=== PATIENT | female | born 1995 | race Two or more races ===

== ENCOUNTER 2024-03-07 09:13 | Outpatient (RCR) | payer MEDICAID, SELFPAY ==
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
--- NOTE | 2024-04-03 09:28 | PT.ODS1RPT ---
PT OP Progress/Discharge Note Date of Service: 03/24/24 Progress Note/DC Note Progress Note/Discharge Note: DC Note Patient Information Visit Reasons: right ankle pain Service Discharge Date: 04/03/24 Status Assessment: Pt seen for inital evaluation 03/07/24. Pt no showed 03/14 and 03/26 appt. At this time Pt will be d/c from care due to auth 03/20/24. Pt did not meet set goals in therapy; thank you for your referrals.
== END 2024-04-04 23:59 | disposition home or self-care (01) ==
LOC: CPTX 09:13
PROVIDERS: PCP Family Medicine; Referring Provider Family Medicine; Visit Provider Family Medicine
DX: M25.571 Pain in right ankle and joints of right foot (principal); G89.29 Other chronic pain; R26.2 Difficulty in walking, not elsewhere classified; R26.89 Other abnormalities of gait and mobility
CPT/HCPCS: 97162

== ENCOUNTER 2024-10-02 11:00 | Outpatient (RCR) | payer MEDICAID, SELFPAY ==
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
--- NOTE | 2024-09-20 11:09 | PT.ODAYNRPT ---
PT Outpatient Daily Note OP Daily Note Outpatient Physical Therapy Treatment Date: 09/20/24 Visit Reasons: RIGHT ANKLE PAIN Subjective: Pt c/o 9/10 pain this morning, said she walked further that what she is used to today. Objective: Please see flow sheet for ther ex list. Assessment: Pt demonstrates poor activity tolerance due to pain response. Plan: Continue with pOC, assess response to treatment. Length of Time (minutes) of Treatment: 30 Minutes Procedure Charges Therapeutic Exercise 30 minutes: Yes
--- NOTE | 2024-09-25 11:07 | PT.ODAYNRPT ---
PT Outpatient Daily Note OP Daily Note Outpatient Physical Therapy Treatment Date: 09/25/24 Visit Reasons: RIGHT ANKLE PAIN Subjective: Pt reports ankle was sore and painful after last session. Objective: Please see flow sheet for there x list. Assessment: Pt demonstrates poor activity tolerance due to pain response. Plan: Continue with pOC. Length of Time (minutes) of Treatment: 30 Minutes Procedure Charges Therapeutic Exercise 30 minutes: Yes
--- NOTE | 2024-09-27 09:43 | PT.ODAYNRPT ---
PT Outpatient Daily Note OP Daily Note Outpatient Physical Therapy Treatment Date: 09/27/24 Visit Reasons: RIGHT ANKLE PAIN Subjective: Continued R ankle pain Objective: See F/S for therex MT: K tape lateral ankle x7' Assessment: High tissue irritability of the ankle limits WB tolerance and ambulatory distance Plan: Continue per POC Length of Time (minutes) of Treatment: 30 Minutes Procedure Charges Therapeutic Exercise 30 minutes: Yes
--- NOTE | 2024-10-02 11:51 | PTNOTE_ITS ---
PT Outpatient Daily Note OP Daily Note Outpatient Physical Therapy Treatment Date: 10/02/24 Visit Reasons: RIGHT ANKLE PAIN Subjective: Continued R ankle pain. [place] a burning with the K tape on Objective: See F/S for therex MHP: x7' R ankle Assessment: Slow progress with goals due to high tissue irritability of the ankle limits WB tolerance and ambulatory distance Plan: Continue per POC Length of Time (minutes) of Treatment: 30 Minutes Procedure Charges Therapeutic Exercise 30 minutes: Yes
== END 2024-10-02 23:59 | disposition home or self-care (01) ==
LOC: CPTX 11:00
PROVIDERS: PCP Family Medicine; Referring Provider Family Medicine; Visit Provider Family Medicine
DX: M25.571 Pain in right ankle and joints of right foot (principal)
CPT/HCPCS: 97110; 97162